=== PATIENT | male | born 1960 | race Caucasian/White ===

== ENCOUNTER 2017-03-26 01:47 | Emergency (ER) | payer OTHER ==
--- NOTE | ~2017-03-26 | ER ---
PATIENT'S NAME: SONIA ALEJANDRO [facility] AGE: 56 Y [address] ROOM: [place] [id number] LOCATION: [facility] ADMIT DATE: 03/26/2017 ER/Outpatient Report DISCHARGE DATE: 03/26/2017 FAMILY PHYSICIAN: Arash Brennan MD ATTENDING PHYSICIAN: Shari Gandhi Time of Arrival: 0147 hours. Time Seen: 0210 hours. DENTIFICATION: A 56-year-old male. CHIEF COMPLAINT: Right knee pain. HISTORY OF PRESENT ILLNESS: The patient is a 56-year-old male who fell through his deck around 4 p.m. today and has right leg pain just above the knee on the lateral aspect. He has no other injury. He has been able to ambulate. PAST MEDICAL HISTORY: ALLERGIES: NO KNOWN DRUG ALLERGIES. CURRENT MEDICATIONS: 1. Simvastatin 10 mg daily. 2. Aspirin 81 mg daily. 3. Ramipril 2.5 mg daily. 4. Pantoprazole 40 mg daily. 5. Diltiazem 120 mg daily. 6. Metformin 1000 mg b.i.d. 7. Sotalol 120 mg b.i.d. 8. Warfarin 7.5 mg daily. MEDICAL PROBLEMS: Atrial fibrillation, on chronic anticoagulation; diabetes mellitus type 2; hypertension; cataracts; gastroesophageal reflux; and obstructive sleep apnea. PRIOR SURGERIES: Previous toe amputations. SOCIAL HISTORY: The patient lives here in [place]. Works at [employer]. Tobacco use, he quit 5 years ago. Alcohol use, denies. Drug use, denies. PATIENT'S NAME: SONIA ALEJANDRO [facility] AGE: 56 Y [address] ROOM: [place] [address] LOCATION: [facility] ADMIT DATE: 03/26/2017 ER/Outpatient Report DISCHARGE DATE: 03/26/2017 FAMILY PHYSICIAN: Arash Brennan MD ATTENDING PHYSICIAN: Shari Gandhi FAMILY HISTORY: Positive for diabetes. REVIEW OF SYSTEMS: All systems reviewed and negative other than what is noted in the HPI. PHYSICAL EXAMINATION: VITAL SIGNS: Height 62 inches, weight 152 kilograms, blood pressure 122/58, pulse 56, respirations 16, temperature 98.7, sats 97% on room air. GENERAL: A 56-year-old male, in no acute distress. HEENT: Unremarkable. LUNGS: Clear to auscultation. HEART: Regular rate and rhythm. ABDOMEN: Soft. SKIN: [place], warm, and dry. EXTREMITIES: The patient has a small area of ecchymosis just below his right knee medically. No ligamentous laxity. He has good distal pulses. Sensation is intact. Previous toe amputations are noted. He has tenderness to the lateral aspect of his thigh. No bruising or ecchymosis is noted. He has minimal tenderness to his right hip. LABORATORY DATA AND X-RAYS: X-ray of his pelvis and right hip; no acute fracture. X-ray of his femur; negative for acute fracture, he does have degenerative changes of his knee. Hemoglobin 12.1, hematocrit 35.4, platelets 225, white count 9.5. INR 2.26. IMPRESSION: 1. Right leg pain after fall. No acute injury identified. 2. Chronic anticoagulation with therapeutic INR. PLAN: Tj wrap, ice and elevate. Tylenol for pain. Weight bear as tolerated. Follow up with Dr. Brennan in 2 days. Follow up sooner if any problems or concerns. The patient understands and agrees, and all questions have been answered. SHARI GANDHI MD CAR/modl PATIENT'S NAME: SONIA ALEJANDRO [facility] AGE: 56 Y [address] ROOM: [place] [address] LOCATION: [facility] ADMIT DATE: 03/26/2017 ER/Outpatient Report DISCHARGE DATE: 03/26/2017 FAMILY PHYSICIAN: Arash Brennan MD ATTENDING PHYSICIAN: Shari Gandhi /[id number] d: 03/26/17 0535 t: 03/28/17 0658, OUTPATIENT REPORT
[~2017-03-26 01:47] MED LIST: ALTACE1.25 MG; AMOXIL (BID DO875 MG; ASPIR 8181 MG; COUMADIN **IA1 MG; DILTIAZEM 24HR120 MG; FLEXERIL10 MG PO; GLUCOPHAGE500 MG; PROTONIX20 MG; SOTALOL120 MG; ULTRAM50 MG PO; ZOCOR10 MG
[2017-03-26 02:56] LABS: BASOPHIL # 0.1 K/uL (0.0-0.2); BASOPHIL % 0.8 %; EOSINOPHIL # 0.4 K/uL (0.0-0.5); EOSINOPHIL % 3.8 %; HEMATOCRIT 35.4 % (37.0-53.0); HEMOGLOBIN 12.1 g/dL (12.0-17.0); IMMATURE GRANULOCYTE % 0.2 %; LYMPHOCYTE # 1.2 K/uL (0.8-4.0); LYMPHOCYTE % 12.2 %; MCH 31.3 pg (27.0-34.0); MCHC 34.2 gm/dL (32.0-36.5); MCV 91.7 fl (83.0-98.0); MONOCYTE # 0.9 K/uL (0.0-1.0); MONOCYTE % 9.1 %; MPV 9.5 fl (9.4-12.4); NEUTROPHIL # (ANC) 7.1 K/uL (1.4-9.0); NEUTROPHIL % 73.9 %; NRBC % 0 /100WBC (0-0.00); PLATELET COUNT 225 K/uL (150-450); RBC 3.86 M/uL (4.00-6.00); WBC 9.5 K/uL (4.0-11.0)
[2017-03-26 03:09] LABS: INR - (THERAPEUTIC) 2.26 (0.92-1.07); PROTIME 23.9 SECONDS (9.8-11.4); PTT 34 SECONDS (25-32)
== END 2017-03-26 03:15 | disposition disaster alternative care site (69) ==
LOC: GACC 01:47
PROVIDERS: Family Medicine
DX: S80.11XA Contusion of right lower leg, initial encounter (principal); M17.11 Unilateral primary osteoarthritis, right knee; I48.91 Unspecified atrial fibrillation; E11.9 Type 2 diabetes mellitus without complications; I10 Essential (primary) hypertension; K21.9 Gastro-esophageal reflux disease without esophagitis; G47.33 Obstructive sleep apnea (adult) (pediatric); Z87.891 Personal history of nicotine dependence; Z79.84 Long term (current) use of oral hypoglycemic drugs; Z79.899 Other long term (current) drug therapy; Z89.429 Acquired absence of other toe(s), unspecified side; Z79.82 Long term (current) use of aspirin; W13.3XXA Fall through floor, initial encounter; Z79.01 Long term (current) use of anticoagulants; W17.89XA Other fall from one level to another, initial encounter